=== PATIENT | female | born 1955 | race Caucasian/White ===

== ENCOUNTER 2018-05-30 12:40 | Emergency (ER) | END 2018-05-30 17:56 | disposition home or self-care (01) ==

== ENCOUNTER 2018-12-31 11:22 | Emergency (ER) | payer MEDICAID, OTHER ==
[~2018-12-31] VITALS: Ht 160 cm; Wt 64.8 kg
[~2018-12-31 11:22] MED LIST: BACL10TA PO; IBUP-1561 PO
[2018-12-31 11:29] VITALS: BP 140/76; PULSE 95; RESP 18; Ht 160 cm; Wt 64.8 kg
--- NOTE | 2018-12-31 13:20 | ERD ---
ER Documentation Chief Complaint Chief Complaint left wrist pain s/p slip and fall yesterday HPI 63-year-old female, presents the emergency department, complaining of left wrist pain after a mechanical ground-level fall that occurred yesterday. The pain is dull, constant, 7/10. ROS All systems reviewed and are negative except as per history of present illness. Medications Home Meds Active Scripts Baclofen* (Baclofen*) 10 Mg Tablet, 10 MG PO QHS PRN for back pain, #12 TAB Prov:YASMEEN KOCH MD 12/31/18 Hydrocodone/Acetaminophen ([place] 5-325 Tablet) 1 Each Tablet, 1 TAB PO Q6H PRN for PAIN, #7 TAB Prov:YASMEEN KOCH MD 12/31/18 Ibuprofen* (Motrin*) 400 Mg Tab, 400 MG PO TID PRN for PAIN AND OR ELEVATED T EMP, #30 TAB Prov:YASMEEN KOCH MD 12/31/18 Ibuprofen* (Motrin*) 400 Mg Tab, 400 MG PO Q8, #15 TAB Prov:YASMEEN KOCH MD 05/30/18 Baclofen* (Baclofen*) 10 Mg Tablet, 10 MG PO QHS PRN for MUSCLE SPASMS, #10 TAB Prov:YASMEEN KOCH MD 05/30/18 Allergies Allergies: Coded Allergies: No Known Allergy (Unverified , 05/30/18) PMhx/Soc Hx Cardiac Disorders: Yes (htn) Hx Alcohol Use: No Hx Substance Use: No Hx Tobacco Use: No FmHx Family History: diabetes (sister), coronary disease (mother) Physical Exam Vitals Vital Signs Date Temp Pulse Resp B/P (MAP) Pulse Ox O2 O2 Flow FiO2 Time Delivery Rate 12/31/18 98.3 95 18 140/76 99 11:29 (97) Physical Exam Const: No acute distress Head: Atraumatic Eyes: Normal Conjunctiva ENT: Normal External Ears, Nose and Mouth. Neck: Full range of motion. No meningismus. Resp: Clear to auscultation bilaterally Cardio: Regular rate and rhythm, no murmurs Abd: Soft, non tender, non distended. Normal bowel sounds Skin: No petechiae or rashes Back: No midline or flank tenderness Ext: Left forearm, obvious deformity over the radial aspect, decreased range of motion due to pain, distal neurovascular exam intact, full range of motion in all digits, no cyanosis, or edema, 2+ radial pulse Neur: Awake and alert Psych: Normal Mood and Affect Procedures/MDM Differential diagnosis considered include but not limited are: sprain/strain, ligament injury, fracture, dislocation, low suspicion for acute infectious process. Soft compartments, neurovascular exam grossly intact. Physical examination and clinical presentation consistent with left distal radial fracture. During the ED course the patient received treatment with left sugar tong splint and sling presenting overall improvement of the symptoms. Splint evaluation: Type: Sugar tong Location: Left upper extremity Position: good alignment in anatomical position Neurovascular intact Results and clinical impression discussed with the patient who agrees with management. The patient is stable to be treated outpatient and will be discharged home with recommendations for Ortho evaluation AMINATA, meanwhile, ice, rest and partial immobilization. NSAIDs 3 times daily for 5 days and close monitoring. The patient was instructed to follow up with the primary care provider in the next 48h. If symptoms persist, worsen or new symptoms develop, then patient should return to the ED immediately. Instructions explained and given to patient with acknowledgment and demonstrated understanding. Disclaimer: Inadvertent spelling and grammatical errors are likely due to EHR/dictation software use and do not reflect on the overall quality of patient care. Also, please note that the electronic time recorded on this note does not necessarily reflect the actual time of the patient encounter. Departure Diagnosis: Primary Impression: Fall from slip, trip, or stumble Additional Impressions: Fracture of left distal radius Back pain Condition: Stable Additional Instructions: Thank you very much for allowing us to participate in your care. Your health and safety is our top priority at [facility]. The evaluation in the emergency department has been done to rule out an acute emergency, therefore, chronic conditions like malignancy or other diseases have not been evaluated; therefore, you need to follow up with a primary care provider in the next 48h. If symptoms persist, worsen or new symptoms develop, then patient should return to the ED immediately. Call your primary care doctor TOMORROW for an appointment during the next 2-4 days and bring all the information provided. Have prescriptions filled and follow precisely the directions on the label. If the symptoms get worse and your provider is unavailable, return to the Emergency Department immediately. YASMEEN KOCH MD December 31, 2018 13:20
[2018-12-31] MEDS ORDERED: HYDR-4011 PO (15:04)
[2018-12-31] MEDS ORDERED: IBUP-1561 PO (15:04)
[2018-12-31] MEDS ORDERED: BACL10TA PO (15:05)
== END 2018-12-31 15:17 | disposition home or self-care (01) ==
LOC: FTE 11:22
DX: S52.512A Displaced fracture of left radial styloid process, initial encounter for closed fracture (principal); S39.92XA Unspecified injury of lower back, initial encounter; I10 Essential (primary) hypertension; W01.0XXA Fall on same level from slipping, tripping and stumbling without subsequent striking against object, initial encounter; Y92.9 Unspecified place or not applicable
CPT/HCPCS: 29125; 72072; 72100; 73110; Z7502